=== PATIENT | male | born 1980 | race Caucasian/White ===

== ENCOUNTER 2017-07-27 21:04 | Emergency (ER) | payer OTHER ==
[2017-07-27 21:12] VITALS: RESP 18; TEMP 97.6
[2017-07-27] MEDS ORDERED: SODIUM CHLORIDE 0.9% 1,000 ML IV ONE (21:33)
--- NOTE | 2017-07-27 21:41 | ED ---
Syncope HPI - General Chief Complaint: Dizziness Stated Complaint: Dizziness Time Seen by Provider: 07/27/17 21:16 Source: patient Mode of arrival: ambulatory Limitations: no limitations - History of Present Illness Initial Comments: This is a 37-year-old male with no past medical history presents emergency department for syncopal episodes a few days ago and episode of lightheadedness today. The patient states that he donated plasma 3 days ago. The next day he woke up and had 3 syncopal episodes in the bathroom. He states that he got up and walk to the bathroom and was urinating when all of a sudden he felt very lightheaded and unsteady. He states that he then woke up on the ground and tried to get back up and then had another syncopal episode. This also happened when his came in the room and assisted him in getting up and then she witnessed him having another syncopal episode at that time. Patient does state that he did not drink as much water the day prior when getting his plasma drawn. He did see his primary doctor earlier today who ordered a Holter monitor and echocardiogram. However when he was at home he had a feeling of numbness throughout his body and felt like he may pass out again so he decided come emergency department. The patient denies having any sensation of palpitations or chest pain. No shortness of breath. No recent travel or surgeries. No history of PE or DVT. Currently feels back to normal. No other acute complaints at this time. - Related Data Home Medications Medication Instructions Recorded Confirmed No Known Home Medications [No 07/27/17 07/27/17 Known Home Medications] Allergies Allergy/AdvReac Type Severity Reaction Status Date / Time No Known Allergies Allergy Verified 07/27/17 21:43 Review of Systems ROS Statement: Those systems with pertinent positive or pertinent negative responses have been documented in the HPI. ROS Other: All systems not noted in ROS Statement are negative. Past Medical History Additional Past Medical History / Comment(s): syncope History of Any Multi-Drug Resistant Organisms: None Reported Past Surgical History: Tonsillectomy Past Psychological History: No Psychological Hx Reported Smoking Status: Never smoker Past Alcohol Use History: Occasional Past Drug Use History: None Reported General Exam - General Exam Comments Initial Comments: Constitutional: Awake alert Appears comfortable Head: Normocephalic atraumatic Eyes: no conjunctival injection No scleral icterus EOMI Neck: No JVD Supple Heart: Regular rate rhythm normal S1-S2 no murmurs Lungs: Clear to auscultation bilaterally No wheezing No rales Abdomen: Soft nondistended nontender Extremities: Non edematous DP pulses intact Radial pulses intact Neuro: A&Ox3 No focal neurologic deficits Psych: Appropriate mood and affect Limitations: no limitations Course Vital Signs 07/27/17 07/27/17 21:08 21:40 Temperature 97.6 F Pulse Rate 70 Pulse Rate [ 75 Locker Room Clerk ] Respiratory 18 Rate Blood Pressure 152/83 Blood Pressure 136/80 [Sitting] Blood Pressure 148/89 [Standing] Blood Pressure 132/75 [Supine] O2 Sat by Pulse 99 Oximetry Medical Decision Making - Medical Decision Making This is a 37-year-old male who presents emergency department for an episode of lightheadedness. The patient had a normal EKG and lab work was unremarkable. He was given 1 L of fluid. He did not have positive orthostatics while in the emergency department. I suspect that the patient's syncope from a few days ago was a combination of not eating and drinking as much and donated plasma. He does have good follow-up with Dr. Hassan as an outpatient is going to get an echocardiogram and Holter monitor placed. At this time the patient is asymptomatic and wants to leave. I told him to make sure that he has good close follow-up with Dr. Hassan. If he has recurrence of his symptoms or further syncopal episodes he needs return promptly to the emergency department and will likely need to be admitted at that time. - Lab Data Result diagrams: 07/27/17 21:15 07/27/17 21:15 Lab Results 07/27/17 07/27/17 Range/Units 21:15 21:15 WBC 5.4 (3.8-10.6) k/uL RBC 5.48 (4.30-5.90) m/uL Hgb 15.5 (13.0-17.5) gm/dL Hct 45.4 (39.0-53.0) % MCV 82.8 (80.0-100.0) fL MCH 28.2 (25.0-35.0) pg MCHC 34.1 (31.0-37.0) g/dL RDW 12.5 (11.5-15.5) % Plt Count 230 (150-450) k/uL Neutrophils % 61 % Lymphocytes % 25 % Monocytes % 6 % Eosinophils % 4 % Basophils % 1 % Neutrophils # 3.3 (1.3-7.7) k/uL Lymphocytes # 1.4 (1.0-4.8) k/uL Monocytes # 0.3 (0-1.0) k/uL Eosinophils # 0.2 (0-0.7) k/uL Basophils # 0.0 (0-0.2) k/uL Sodium 137 (137-145) mmol/L Potassium 4.2 (3.5-5.1) mmol/L Chloride 102 (98-107) mmol/L Carbon Dioxide 28 (22-30) mmol/L Anion Gap 7 mmol/L BUN 8 L (9-20) mg/dL Creatinine 1.08 (0.66-1.25) mg/dL Est GFR (MDRD) Af Amer >60 (>60 ml/min/1.73 sqM) Est GFR (MDRD) Non-Af >60 (>60 ml/min/1.73 sqM) Glucose 90 (74-99) mg/dL Calcium 9.3 (8.4-10.2) mg/dL Total Bilirubin 0.5 (0.2-1.3) mg/dL AST 25 (17-59) U/L ALT 35 (21-72) U/L Alkaline Phosphatase 65 (38-126) U/L Total Protein 6.1 L (6.3-8.2) g/dL Albumin 3.7 (3.5-5.0) g/dL Disposition Clinical Impression: Pre-syncope Disposition: HOME SELF-CARE Condition: Stable Instructions: Near Syncope (ED) Referrals: Deshaun Urbina Jr, DO [Primary Care Provider] - 1-2 days
[2017-07-27 21:49] LABS: Basophils % (A) 1 %; Eosinophils # (A) 0.2 k/uL (0-0.7); Eosinophils % (A) 4 %; HCT 45.4 % (39.0-53.0); HGB 15.5 gm/dL (13.0-17.5); Lymphocytes # (A) 1.4 k/uL (1.0-4.8); Lymphocytes % (A) 25 %; MCH 28.2 pg (25.0-35.0); MCHC 34.1 g/dL (31.0-37.0); MCV 82.8 fL (80.0-100.0); Mean Platelet Volume 6.8; Monocytes # (A) 0.3 k/uL (0-1.0); Monocytes % (A) 6 %; Neutrophils # (A) 3.3 k/uL (1.3-7.7); Neutrophils % (A) 61 %; Platelet Count 230 k/uL (150-450); RBC 5.48 m/uL (4.30-5.90); RDW 12.5 % (11.5-15.5); WBC 5.4 k/uL (3.8-10.6)
[2017-07-27 21:58] LABS: ALT 35 U/L (21-72); AST 25 U/L (17-59); Albumin 3.7 g/dL (3.5-5.0); Alkaline Phosphatase 65 U/L (38-126); Anion Gap 7 mmol/L; Blood Urea Nitrogen 8 mg/dL (9-20); Calcium 9.3 mg/dL (8.4-10.2); Carbon Dioxide 28 mmol/L (22-30); Chloride 102 mmol/L (98-107); Glucose 90 mg/dL (74-99); Potassium 4.2 mmol/L (3.5-5.1); Sodium 137 mmol/L (137-145); Total Bilirubin 0.5 mg/dL (0.2-1.3); Total Protein 6.1 g/dL (6.3-8.2)
[2017-07-27 22:31] VITALS: BP 119/68; PULSE 65
== END 2017-07-27 22:26 | disposition home or self-care (01) ==
LOC: EC 21:04
DX: R55 Syncope and collapse (principal); R20.0 Anesthesia of skin
CPT/HCPCS: 36415; 80053; 85025; 93005; 96360; 99284

== ENCOUNTER → 2017-08-11 | Outpatient (CLI) | payer OTHER ==
--- NOTE | 2017-08-16 11:28 | HM ---
HOLTER MONITOR REPORT The patient was monitored for 24 hours. The baseline rhythm is a sinus mechanism with normal conduction. The average rate 71 beats per minute, minimum of 41 and maximum 102 beats per minute. Ventricular ectopic activity was present in the form of rare single PVC. Supraventricular ectopic activity was present in the form of rare single PACs. Symptoms of dizziness did not correlate with any dysrhythmia. CONCLUSION: 1. Sinus mechanism baseline rhythm. 2. Rare ventricular ectopic activity. 3. Rare supraventricular ectopic activity. 4. Symptoms did not correlate with any dysrhythmia. MMODL / IJN: [id number] /
--- NOTE | 2017-08-30 15:15 | ECHOF ---
Referral Reason:r55 syncope and collapse MEASUREMENTS -------- HEIGHT: 182.9 cm WEIGHT: 127.0 kg BP: 129/76 RVIDd: 3.1 cm (< 3.3) IVSd: 1.1 cm (0.6 - 1.1) LVIDd: 4.3 cm (3.9 - 5.3) LVPWd: 1.1 cm (0.6 - 1.1) IVSs: 1.5 cm LVIDs: 2.8 cm LVPWs: 1.6 cm LA Diam: 3.6 cm (2.7 - 3.8) LAESV Index (A-L): 19.84 ml/m Ao Diam: 3.7 cm (2.0 - 3.7) AV Cusp: 2.7 cm (1.5 - 2.6) MV EXCURSION: 17.354 mm (> 18.000) MV EF SLOPE: 85 mm/s (70 - 150) EPSS: 0.5 cm MV E Kamlesh: 0.95 m/s MV DecT: 214 ms MV A Kamlesh: 0.64 m/s MV E/A Ratio: 1.47 RAP: 5.00 mmHg RVSP: 25.25 mmHg FINDINGS -------- Sinus rhythm. This was a technically adequate study. The left ventricular size is normal. There is borderline concentric left ventricular hypertrophy. Overall left ventricular systolic function is normal with, an EF between 55 - 60 %. The right ventricle is normal in size and function. Normal LA size by volume 22+/-6 ml/m2. The right atrium is normal in size. The aortic valve was not well visualized. Mild mitral annular calcification present. There is trace to mild mitral regurgitation. Mild tricuspid regurgitation present. Right ventricular systolic pressure is normal at < 35 mmHg. Trace/mild (physiologic) pulmonic regurgitation. The aortic root size is normal. Normal inferior vena cava with normal inspiratory collapse consistent with estimated right atrial pre ssure of 5 mmHg. There is no pericardial effusion. CONCLUSIONS -------- 1. Sinus rhythm. 2. This was a technically adequate study. 3. The left ventricular size is normal. 4. There is borderline concentric left ventricular hypertrophy. 5. Overall left ventricular systolic function is normal with, an EF between 55 - 60 %. 6. The right ventricle is normal in size and function. 7. Normal LA size by volume 22+/-6 ml/m2. 8. The right atrium is normal in size. 9. The aortic valve was not well visualized. 10. Mild mitral annular calcification present. 11. There is trace to mild mitral regurgitation. 12. Mild tricuspid regurgitation present. 13. Right ventricular systolic pressure is normal at < 35 mmHg. 14. Trace/mild (physiologic) pulmonic regurgitation. 15. The aortic root size is normal. 16. Normal inferior vena cava with normal inspiratory collapse consistent with estimated right atrial pressure of 5 mmHg. 17. There is no pericardial effusion. SOCIAL WORK INSTRUCTOR: Disha Esquivel RDCS
== END | disposition home or self-care (01) ==
LOC: RADECHMAIN 11:29
PROVIDERS: ATTEND Family Medicine
DX: I08.8 Other rheumatic multiple valve diseases (principal); I49.3 Ventricular premature depolarization
CPT/HCPCS: 93225; 93226; 93306

== ENCOUNTER 2020-04-09 13:26 | Emergency (ER) | payer OTHER ==
[2020-04-09 13:33] VITALS: BP 152/89; PULSE 85; RESP 20; TEMP 97.9
[2020-04-09] MEDS ORDERED: AMOXIC-POT CLAV 875-125MG 1 EACH TAB PO STA (14:01)
[2020-04-09] MEDS ORDERED: DIPH,PERTUS(ACELL)TETVAC-LF 0.5 ML VIAL IM ONE (14:01)
--- NOTE | 2020-04-09 14:04 | ED ---
Animal Bite HPI - General Chief Complaint: Animal Bite Stated Complaint: dog bite rt thumb Time Seen by Provider: 04/09/20 13:38 Source: patient Mode of arrival: ambulatory Limitations: no limitations - History of Present Illness Initial Comments: Patient is a 40-year-old male presenting to emergency Department with a chief complaint of a dog bite. Patient reports this occurred about one hour prior to arrival. Patient states this is his dog and it is fully vaccinated. Patient reports it bit him on the right thumb. Patient reported minimal pain but he was advised by the educational therapy teacher to come to the emergency department for evaluation. He denies any pain numbness or tingling. States he has full range of motion of them. - Related Data Previous Rx's Medication Instructions Recorded Amoxicillin/Potassium Clav 1 tab PO Q12HR #20 tab 04/09/20 [Augmentin 875-125 Tablet] Allergies Allergy/AdvReac Type Severity Reaction Status Date / Time No Known Allergies Allergy Verified 04/09/20 13:33 Review of Systems ROS Statement: Those systems with pertinent positive or pertinent negative responses have been documented in the HPI. ROS Other: All systems not noted in ROS Statement are negative. Past Medical History Additional Past Medical History / Comment(s): syncope History of Any Multi-Drug Resistant Organisms: None Reported Past Surgical History: Tonsillectomy Additional Past Surgical History / Comment(s): vasectomy Past Psychological History: No Psychological Hx Reported Smoking Status: Never smoker Past Alcohol Use History: Occasional Past Drug Use History: None Reported General Exam Limitations: no limitations General appearance: alert, in no apparent distress, obese Head exam: Present: atraumatic, normocephalic, normal inspection Eye exam: Present: normal appearance, PERRL, EOMI Pupils: Present: normal accommodation ENT exam: Present: normal exam, normal oropharynx, mucous membranes moist, TM's normal bilaterally, normal external ear exam Neck exam: Present: normal inspection, full ROM. Absent: tenderness Respiratory exam: Present: normal lung sounds bilaterally. Absent: respiratory distress, wheezes, rales Cardiovascular Exam: Present: regular rate, normal rhythm, normal heart sounds Extremities exam: Present: full ROM (Full range of motion in the right thumb), normal capillary refill, other (+2 ulnar primary pulses bilaterally. Sensation intact in all the fingers.). Absent: normal inspection (2 bite odonnell noted on the distal aspect of the right thumb.), tenderness (No pain at the bite site), pedal edema, joint swelling, calf tenderness Back exam: Present: normal inspection, full ROM. Absent: tenderness, CVA tenderness (R), CVA tenderness (L) Neurological exam: Present: alert, oriented X3, normal gait Psychiatric exam: Present: normal affect, normal mood Skin exam: Present: warm, dry, intact, normal color Course Vital Signs 04/09/20 13:31 Temperature 97.9 F Pulse Rate 85 Respiratory 20 Rate Blood Pressure 152/89 O2 Sat by Pulse 99 Oximetry Medical Decision Making - Medical Decision Making Patient is a 40-year-old male presenting to the emergency department with chief complaint of a dog bite. On exam patient is neurovascularly intact and he has full range of motion in the right thumb. Patient was started on Augmentin discharged in 10 days of Augmentin. Tetanus was also updated. The dog is vaccinated up-to-date. Return parameters discussed with patient was understanding and agreeable. Case discussed with physician. Disposition Clinical Impression: Bite by animal, Dog bite Disposition: HOME SELF-CARE Condition: Stable Instructions (If sedation given, give patient instructions): Animal Bite (ED) Additional Instructions: Take prescribed medication as directed. Return to emergency department if symptoms worsen. Prescriptions: Amoxicillin/Potassium Clav [Augmentin 875-125 Tablet] 1 tab PO Q12HR #20 tab Is patient prescribed a controlled substance at d/c from ED?: No Referrals: Deshaun Urbina Jr, DO [Primary Care Provider] - 1-2 days Time of Disposition: 14:44
== END 2020-04-09 14:59 | disposition home or self-care (01) ==
LOC: EC 13:26
DX: S61.051A Open bite of right thumb without damage to nail, initial encounter (principal); Z23 Encounter for immunization; W54.0XXA Bitten by dog, initial encounter; Y92.009 Unspecified place in unspecified non-institutional (private) residence as the place of occurrence of the external cause
CPT/HCPCS: 90471; 90715; 99283

== ENCOUNTER → 2020-06-07 | Outpatient (CLI) | payer OTHER | END | disposition home or self-care (01) | LOC: LABWHC1 12:00 | PROVIDERS: ATTEND Family Medicine | DX: R50.9 Fever, unspecified (principal); R52 Pain, unspecified; R51.9 Headache, unspecified | CPT/HCPCS: U0003; C9803 ==

== ENCOUNTER → 2023-12-15 | Outpatient (CLI) | payer OTHER ==
[2023-12-15 10:26] LABS: Basophils # (A) 0.01 X 10*3/uL (0.00-0.10); Basophils % (A) 0.2 %; Eosinophils # (A) 0.25 X 10*3/uL (0.04-0.35); HCT 46.7 % (39.6-50.0); Lymphocytes # (A) 1.13 X 10*3/uL (0.90-5.00); Lymphocytes % (A) 22.7 %; MCH 27.8 pg (27.0-32.0); MCHC 34.3 g/dL (32.0-37.0); MCV 81.1 FL (80.0-97.0); Mean Platelet Volume 9.8 FL (9.5-12.2); Monocytes # (A) 0.36 X 10*3/uL (0.20-1.00); Monocytes % (A) 7.2 %; NRBC Per 100 WBC 0 X 10*3/uL (0.00-0.01); Neutrophils % (A) 64.5 %; Platelet Count 229 X 10*3/uL (140-440); RBC 5.76 X 10*6/uL (4.40-5.60); RDW 12.5 % (11.5-14.5); WBC 4.97 X 10*3/uL (4.50-10.00)
[2023-12-15 11:02] LABS: ALT 36 U/L (10-49); AST 20 U/L (14-35); Albumin 4.4 g/dL (3.8-4.9); Albumin/Globulin Ratio 1.83 Ratio (1.60-3.17); Alkaline Phosphatase 100 U/L (41-126); Blood Urea Nitrogen 11.6 mg/dL (9.0-27.0); Calcium 9.1 mg/dL (8.7-10.3); Carbon Dioxide 25.1 mmol/L (21.6-31.8); Chloride 106 mmol/L (96-109); Chol/HDL Ratio 5.08 Ratio; Globulin 2.4 g/dL (1.6-3.3); Glucose 101 mg/dL (70-110); LDL Cholesterol,Calculated 122.4 mg/dL (0.0-131.0); Potassium 4.5 mmol/L (3.5-5.5); Sodium 143 mmol/L (135-145); Total Bilirubin 0.5 mg/dL (0.3-1.2); Total Protein 6.8 g/dL (6.2-8.2)
[2023-12-16 12:54] LABS: Lead, Blood 4.8 ug/dL (<5.0)
== END | disposition home or self-care (01) ==
LOC: LABWHC1 07:12
PROVIDERS: ATTEND Family Medicine
DX: Z00.00 Encounter for general adult medical examination without abnormal findings (principal); I10 Essential (primary) hypertension; E55.9 Vitamin D deficiency, unspecified; Z76.89 Persons encountering health services in other specified circumstances; Z77.011 Contact with and (suspected) exposure to lead; R53.83 Other fatigue
CPT/HCPCS: 36415; 80053; 80061; 82040; 82306; 83655; 84270; 84403; 84443; 85025

== ENCOUNTER 2024-10-24 17:30 | Emergency (ER) | payer OTHER ==
[2024-10-24 17:34] VITALS: RESP 18
[2024-10-24] MEDS: MORPHINE SULFATE 4 MG/ML SYRINGE IM STA (17:42)
[2024-10-24] MEDS: LIDOCAINE 1% INJ 10MG/ML (20 ML MDV) SQ ONE (17:45)
--- NOTE | 2024-10-24 17:52 | ED ---
Wound/Laceration HPI - General Chief Complaint: Wound/Laceration Stated Complaint: L hand lac Time Seen by Provider: 10/24/24 17:35 Source: patient, RN notes reviewed Mode of arrival: ambulatory Limitations: no limitations - History of Present Illness Initial Comments: This is a 44-year-old male who presents to the emergency department for a left thumb injury. States that he cut his left thumb with a table saw shortly before arrival. This is starting to become more painful. He is still able to fully move the thumb. Not taking any blood thinners. Tetanus vaccine is up-to-date. - Related Data Previous Rx's Medication Instructions Recorded Amoxicillin/Potassium Clav 1 tab PO Q12HR #20 tab 04/09/20 [Augmentin 875-125 Tablet] Cephalexin [Keflex] 500 mg PO Q6HR 7 Days #28 cap 10/24/24 Ketorolac [Toradol] 10 mg PO Q6HR PRN #15 tab 10/24/24 Allergies Allergy/AdvReac Type Severity Reaction Status Date / Time No Known Allergies Allergy Verified 10/24/24 17:34 Review of Systems ROS Statement: Those systems with pertinent positive or pertinent negative responses have been documented in the HPI. ROS Other: All systems not noted in ROS Statement are negative. Past Medical History Additional Past Medical History / Comment(s): syncope History of Any Multi-Drug Resistant Organisms: None Reported Past Surgical History: Tonsillectomy Additional Past Surgical History / Comment(s): vasectomy Past Psychological History: No Psychological Hx Reported Smoking Status: Never smoker Past Alcohol Use History: Occasional Past Drug Use History: None Reported General Exam Limitations: no limitations General appearance: alert, in no apparent distress Head exam: Present: atraumatic, normocephalic, normal inspection Respiratory exam: Present: normal lung sounds bilaterally. Absent: respiratory distress, wheezes, rales, rhonchi, stridor Cardiovascular Exam: Present: regular rate, normal rhythm Extremities exam: Present: other (Jagged laceration to the left thumb extending from the left lateral aspect over the top and through the nail on the medial aspect of the thumb. Active bleeding.) Neurological exam: Present: alert, oriented X3, CN II-XII intact Psychiatric exam: Present: normal affect, normal mood Course Vital Signs 10/24/24 10/24/24 17:31 20:06 Temperature 98.4 F 97.8 F Pulse Rate 91 75 Respiratory 18 18 Rate Blood Pressure 187/71 145/79 O2 Sat by Pulse 98 98 Oximetry Procedures - Laceration Laceration #1 Consent Obtained: verbal consent Indication: laceration Site: other (left thumb) Size (cm): 8 Description: stellate, flap, irregular Depth: simple, single layer Anesthetic Used: lidocaine 1% Anesthesia Technique: local infiltration, nerve block Amount (mls): 8 Pre-repair: wound explored, irrigated extensively Type of Sutures: nylon Size of Sutures: 5-0 Number of Sutures: 19 Technique: simple, interrupted - Nerve Block Consent Obtained: verbal consent Local Anesthetic Used: Lidocaine 1% Amount of anesthesia used: 4 Nerve Blocks: digital Procedure Successful: Yes Medical Decision Making - Medical Decision Making This is a 44 year old male who presents to the emergency department for a left thumb injury. Was pt. sent in by a medical professional or institution? @ -No Did you speak to anyone other than the patient for history? @ -No Did you review nursing and triage notes? @ -Yes, and I agree, it is accurate with regards to the patient's symptoms. Were old charts reviewed? @ -No Differential Diagnosis? @ -Laceration, abrasion, burn, cellulitis, fracture, this is not meant to be an all-inclusive list. EKG interpreted by me (3pts min.)? @ -Not obtained X-rays interpreted by me (1pt min.)? @ -X-ray of the left thumb obtained. My interpretation identifies a distal p halanx fracture. CT interpreted by me (1pt min.)? @ -Not obtained U/S interpreted by me (1pt. min.)? @ -Not obtained What testing was considered but not performed? (CT, X-rays, U/S, labs)? Why? @ -None What meds were considered but not given? Why? @ -None Did you discuss the management of the patient with other professionals? @ -No Did you reconcile home meds? @ -No Was smoking cessation discussed for >3mins.? @ -No Was critical care preformed (if so, how long)? @ -No Were there social determinants of health that impacted care today? How? (Homelessness, low income, unemployed, alcoholism, drug addiction, transportation, low edu. Level, literacy, decrease access to med. care, fci, rehab)? @ -No Was there de-escalation of care discussed even if they declined? (Discuss DNR or withdrawal of care, Hospice)? @ -No What co-morbidities impacted this encounter? (DM, HTN, Smoking, COPD, CAD, Cancer, CVA, Hep., AIDS, mental health diagnosis, sleep apnea, morbid obesity)? @ -None Was patient admitted / discharged? @ -Discharged. The laceration was cleansed and repaired with sutures. Tetanus vaccine is already up-to-date. X-ray of the left thumb demonstrates a comminuted fracture of the proximal portion distal phalanx. The laceration itself did not actually go down to the level of the bones, the fracture was likely caused by the mechanism of the crushing injury. However, given that there was a laceration involved with the fracture, patient was started on Keflex for infectious prophylaxis. His thumb was also bandaged and put into a splint. Toradol prescribed for pain control. Information for follow-up with orthopedics provided. He is advised to contact them for a follow-up appointment. Patient discharged home in stable condition. Case discussed with ED attending Dr. Nolen. Return precautions reviewed in depth, the patient is instructed to return to the emergency department with any new, worsening, or concerning symptoms. Patient verbalized understanding. Undiagnosed new problem with uncertain prognosis? @ -None Drug Therapy requiring intensive monitoring for toxicity (Heparin, Nitro, Insulin, Cardizem)? @ -None Were any procedures done? @ -Laceration repair with sutures, digital block of the left thumb Diagnosis/symptom? @ -Left thumb laceration, distal phalanx fracture Acute, or Chronic, or Acute on Chronic? @ -Acute Uncomplicated (without systemic symptoms) or Complicated (systemic symptoms)? @ -Uncomplicated Side effects of treatment? @ -None Exacerbation, Progression, or Severe Exacerbation] @ -Not applicable Poses a threat to life or bodily function? @ -Will limit use of the left hand for the meantime - Radiology Data Radiology results: report reviewed, image reviewed Disposition Clinical Impression: Laceration of left thumb, Fracture of distal phalanx of left thumb Disposition: HOME SELF-CARE Instructions (If sedation given, give patient instructions): Care For Your Stitches (ED), Finger Fracture (ED) Additional Instructions: Return to the emergency department with any new, worsening, or concerning symptoms. Take the antibiotic as prescribed for 7 days. Take the Toradol with Tylenol as needed for pain relief. If you choose to take the Toradol, do not take any other anti-inflammatories such as ibuprofen, take one or the other. Contact the orthopedic office listed below first thing tomorrow morning. Let them know that you were seen in the emergency department for a saw injury to your left thumb causing a large wound with a finger fracture. They will schedule you for a follow-up appointment. The stitches will need to be removed in 7 to 10 days. You can have that done here or with orthopedics. Prescriptions: Cephalexin [Keflex] 500 mg PO Q6HR 7 Days #28 cap Ketorolac [Toradol] 10 mg PO Q6HR PRN #15 tab PRN Reason: Pain Is patient prescribed a controlled substance at d/c from ED?: No Referrals: Deshaun Urbina Jr, DO [Primary Care Provider] - 1-2 days Angelo Garcia DO [Doctor of Osteopathic Medicine] - 1-2 days Time of Disposition: 19:39
--- NOTE | 2024-10-24 19:41 | XR ---
EXAMINATION TYPE: XR finger LT DATE OF EXAM: 10/24/2024 7:19 PM COMPARISON: None. CLINICAL INDICATION: Male, 44 years old with history of Thumb injury, pain, table saw laceration TECHNIQUE: 4 view(s) obtained. FINDINGS: There is a fracture through the proximal portion distal phalanx left thumb. This appears to extend to the articular surface. Some fragmentation may be posterior to the mid arch and of the distal phalanx . Lateral view demonstrates comminution at the distal interphalangeal joint space. Some soft tissue f oreign bodies or within the pad of the distal thumb IMPRESSION: 1. Comminuted fracture proximal portion distal phalanx. 2. Some radiopaque foreign bodies may be within the soft tissues of the pad [facility], Workstation: [email or web address], 10/24/2024 7:39 PM
[2024-10-24] MEDS: CEPHALEXIN 500 MG CAP PO STA (19:56)
[2024-10-24] MEDS: CEPHALEXIN 500MG STARTER PACK 4 CAP BTL PO STA (19:57)
[2024-10-24] MEDS: ACET/COD 300 MG/30 MG STARTER PACK 6 TAB BTL PO STA (19:57)
[2024-10-24 20:07] VITALS: BP 145/79; PULSE 75; TEMP 97.8
== END 2024-10-24 20:25 | disposition home or self-care (01) ==
LOC: EC 17:30
DX: S61.012A Laceration without foreign body of left thumb without damage to nail, initial encounter (principal); W31.2XXA Contact with powered woodworking and forming machines, initial encounter
CPT/HCPCS: 73140; 99283; 96372; 12004; J2270; J2003